=== PATIENT | female | born 1970 | race Caucasian/White ===

== ENCOUNTER → 2017-11-25 | Outpatient (CLI) | payer BC ==
[~2017-11-25] MED LIST: BENADRYL50 MG PO; FEOSOL325 MG PO; FLONASE16 G1 BOTH NARES; IBUPROFEN400 MG PO; IBUPROFEN800 MG PO; IMITREX50 MG PO; MEGACE40 MG PO; MULTI VITAMIN1 EACH PO; PROAIR HFA8.5 GM IH
== END | disposition home or self-care (01) ==
LOC: RAD 10:00
DX: R06.02 Shortness of breath (principal); R07.9 Chest pain, unspecified; F17.200 Nicotine dependence, unspecified, uncomplicated
CPT/HCPCS: 71275